=== PATIENT | female | born 1990 | race Hispanic/Latino ===

== ENCOUNTER 2018-01-26 09:54 | Outpatient (CLI) | payer BC | END 2018-01-26 09:55 | disposition home or self-care (01) | LOC: BICULT 09:54 | PROVIDERS: ATTEND Internal Medicine Gastroenterology | DX: K21.9 Gastro-esophageal reflux disease without esophagitis (principal); R10.13 Epigastric pain; R11.2 Nausea with vomiting, unspecified; R94.5 Abnormal results of liver function studies; R19.4 Change in bowel habit; K76.6 Portal hypertension; R16.0 Hepatomegaly, not elsewhere classified | CPT/HCPCS: 76700 ==

== ENCOUNTER 2018-02-10 15:56 | Outpatient (CLI) | payer BC ==
--- NOTE | 2018-02-11 08:32 | MRI ---
MRI ABDOMEN WITH AND WITHOUT IV CONTRAST: INDICATION: Followup liver lesion seen on ultrasound. COMPARISON: Prior complete abdomen ultrasound dated 01/26/18 from [facility]. TECHNIQUE: Multiplanar, multisequence MR images were obtained of the abdomen utilizing IV contrast. 20 cc of Mu ltiHance was administered. FINDINGS: There was a hypoechoic well circumscribed lesion within the anterior aspect of the right hepatic dome measuring 9 x 9 x 1.2 cm on the comparison ultrasound examination. The lesion is very difficult to evaluate on the precontrast MR images as it is isointense to the surrounding liver parenchyma. It is best seen on image 31 of series 5 of the T1 series. Very subtle hyperintensity is seen on image 12 of series 4 within this region of segment 7 of the right hepatic dome. This lesion is seen within a background of fatty liver with area of focal fatty sparing near the gallbladder fossa. There is an a dditional small T2 hyperintense, T1 hypointense lesion seen within segment 6 of the right hepatic lob e measuring 1.5 cm. On the postcontrast series, the incidental lesion within segment 6 of the right hepatic lobe demonstr ates areas of central and peripheral discontinuous nodular enhancement of the progressive central judy ling consistent with a small hemangioma. The lesion, in question, seen on the ultrasound examination, demonstrates some early arterial enhance ment that is fairly homogeneous and diffuse, that persists throughout all phases and may reflect a sm all capillary-type hemangioma. No additional focal hepatic lesion is evident. No enlarged lymph nod es are evident. The liver demonstrates no cirrhotic morphological characteristics. The spleen is no rmal-appearing. The adrenal glands and pancreas appear within normal limits. Visualized aspects of the kidneys appear within normal limits. No definite bone marrow signal abnormality is evident. IMPRESSION: 1. The lesion in question within segment 7 of the right hepatic dome anteriorly is suspicious for a [id number] hemangioma. Would recommend a followup examination in 3-6 months utilizing MRI to document stability. 2. 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 3. Diffuse fatty liver with areas of focal fatty sparing near the gallbladder fossa. POS: [facility]
== END 2018-02-10 15:57 | disposition home or self-care (01) ==
LOC: MRI 15:56
PROVIDERS: ATTEND Internal Medicine Gastroenterology
DX: K76.0 Fatty (change of) liver, not elsewhere classified (principal); R93.3 Abnormal findings on diagnostic imaging of other parts of digestive tract; R11.2 Nausea with vomiting, unspecified; R19.4 Change in bowel habit; R94.5 Abnormal results of liver function studies; K76.89 Other specified diseases of liver
CPT/HCPCS: 74183

== ENCOUNTER 2018-09-13 09:30 | Emergency (ER) | payer BC, OTHER ==
[2018-09-13] MEDS ORDERED: Fluorescein Opthalmic Strip ONE (09:40)
[2018-09-13] MEDS ORDERED: Proparacaine 0.5% Opth 15 ML BOT ONE (09:40)
== END 2018-09-13 10:12 | disposition home or self-care (01) ==
LOC: SCSER 09:30
DX: H18.822 Corneal disorder due to contact lens, left eye (principal); J06.9 Acute upper respiratory infection, unspecified; F41.9 Anxiety disorder, unspecified
CPT/HCPCS: 99283

== ENCOUNTER 2018-12-13 16:22 | Day surgery (SDC) | payer OTHER ==
[2018-12-13 17:11] VITALS: BMI 33.8
[2018-12-13] MEDS ORDERED: Promethazine HCl 25 MG/ML VIAL IM/IV PRN (17:32)
[2018-12-13] MEDS ORDERED: Lactated Ringer's 1,000 ML IV SCH ×2 (17:45)
[2018-12-13 17:57] LABS: #Lymphocytes 0.6 thou/uL (1.20-3.40); #Monocytes 0.1 thou/uL (0.11-0.59); #Neutrophils 7.8 thou/uL (1.40-6.50); %Basophils 0.1 % (0.0-1.0); %Eosinophils 0.4 % (0.0-10.0); %Lymphocytes 6.5 % (21.0-51.0); %Monocytes 1.6 % (0.0-10.0); %Neutrophils 91.4 % (42.0-75.0); Hemoglobin 11.9 g/dL (12.0-16.0); Mean Corpuscular Hemoglobin 28.5 pg (27.0-31.0); Mean Corpuscular Volume 86.3 fL (78.0-98.0); Mean Platelet Volume 10.3 fL (7.4-10.4); Platelet Count 176 thou/uL (130-400); RBC Distribution Width 12.4 % (11.5-14.5); Red Blood Cell (RBC) Count 4.18 mill/uL (4.20-5.40); White Blood Cell (WBC) Count 8.6 thou/uL (4.8-10.8)
[2018-12-13 18:16] LABS: Anion Gap 14 mmol/L (10-20); BUN (Urea Nitrogen) 9 mg/dL (7.0-18.7); Calc. Creatinine Clearance 166 mL/min (70-130); Calcium 8.8 mg/dL (7.8-10.44); Carbon Dioxide 20 mmol/L (22-29); Chloride 106 mmol/L (98-107); Estimated GFR-MDRD Greater than 90; Glucose 90 mg/dL (70-105); Potassium 3.6 mmol/L (3.5-5.1); Sodium 136 mmol/L (136-145)
[2018-12-13 19:26] LABS: Bilirubin Small (Negative); Blood, Urine Negative (Negative); Clarity CLEAR (Clear); Glucose, Urine (Dipstick) Negative (Negative); Leukocyte Negative (Negative); Nitrite Negative (Negative); Protein, Urine (Dipstick) Negative (Neg-Trace); Specific Gravity, Urine 1.028 (1.002-1.036)
[2018-12-13 19:28] LABS: Bacteria/HPF None Seen HPF (None Seen); Hyaline Casts/LPF 4-6 HYALINE CAST LPF (0-3 Hyaline); Pathc Cast-AUWi Flag 0.68 (0-2.49); RBC/HPF 0-3 HPF (0-3); Squamous Epithelial 0-3 HPF (0-3); WBC/HPF 0-3 HPF (0-3)
[2018-12-13 19:32] LABS: Urine Culture Reflex No No
--- NOTE | 2018-12-13 20:47 | ER ---
DATE OF SERVICE: 12/13/2018 PRESENTING COMPLAINT: Nausea and vomiting at 23 weeks' gestation. HISTORY OF PRESENT ILLNESS: The patient is a 28-year-old 3, para 2, at 23 to 24 weeks' gestation, sees Dr. Tima Infante. Antepartum records not available on the unit. She reports one day of nausea and vomiting with diarrhea. She reports household contacts with same, not quite as bad about 5 days ago. She denies bleeding. She denies fever or chills. She does report lower back pain. PIGMENT MIXER HISTORY: x3, no complications. MEDICAL HISTORY: None. PAST SURGICAL HISTORY: None. ALLERGIES: SULFA. MEDICATIONS: vitamins. SOCIAL HISTORY: Denies tobacco, alcohol, or drug use. FAMILY HISTORY: Noncontributory. REVIEW OF SYSTEMS: Noncontributory. PHYSICAL EXAMINATION: GENERAL: female, obviously feeling poorly upon presentation. VITAL SIGNS: Blood pressure 107/66, pulse 111, respirations 18, temperature 98.9, and SaO2 100%. HEENT: Within normal limits. LUNGS: Clear to auscultation bilaterally. HEART: Regular rhythm. ABDOMEN: Soft and nontender without rebound or guarding. Fundal height is 23, FHTs are in the 150s. No CVA tenderness is noted. Vulva was without lesions. Vaginal exam deferred. EXTREMITIES: No clubbing, cyanosis, or edema. Fem cath UA was positive for 40+ ketones, but otherwise unremarkable. CBC and basic metabolic were unremarkable. The patient underwent a course of treatment with LR 1 L bolus and then 250 mL an hour for rehydration. She received 25 of Phenergan IM. After approximately 2.5 hours, the patient felt much better and desired discharge home. She was discharged home on a bland diet, encouraging p.o. intake with Gatorade or other electrolyte bearing liquids, and to keep scheduled followup with Dr. Infante with ER precautions for return. Job ID: [id number]
== END 2018-12-13 21:04 | disposition home or self-care (01) ==
LOC: L&D/OP 16:22
PROVIDERS: ATTEND Obstetrics & Gynecology
DX: O99.89 Other specified diseases and conditions complicating pregnancy, childbirth and the puerperium (principal); R19.7 Diarrhea, unspecified; R11.2 Nausea with vomiting, unspecified; Z88.2 Allergy status to sulfonamides; Z3A.23 23 weeks gestation of pregnancy
CPT/HCPCS: 36415; 51701; 80048; 81001; 85025; 96360; 96361; 96372; 99282; J2550

== ENCOUNTER 2019-03-07 19:07 | Inpatient (IN) | payer OTHER ==
[2019-03-07 19:56] VITALS: BMI 33.6
[2019-03-07 20:09] LABS: Amnisure Test No Membranes Rupture (No Rupture)
[2019-03-07 20:10] LABS: Amnisure Internal Control QC ACCEPTABLE (ACCEPTABLE)
[2019-03-07] MEDS ORDERED: hydrALAZINE 20 MG/ML VIAL SLOW IVP PRN ×2 (20:16→23:04)
--- NOTE | 2019-03-07 21:20 | ULT ---
US OB Ltd HISTORY: Evaluation of position and amniotic fluid index. COMPARISON: None. FINDINGS: Limited examination was performed as anatomy was difficult to assess at this stage of gestation. There is a single viable intrauterine which is in a vertex presentation. The placenta is left-sided and fundal in location. The amniotic fluid is decreased consistent with a hist ory of possible premature rupture of membrane. The amniotic fluid index is 6.9. Visually the fluid appears very decreased. measurements are as follows: BPD: 8.5 cm, 34 weeks 3 days. Head circumference: 31.4 cm, 35 weeks 1 day. Abdominal circumference: 31.4 cm, 35 weeks 2 days. Femur length: 6.8 cm, 34 weeks 6 days. The heart rate is 126 bpm. IMPRESSION: 1. Single viable intrauterine in a vertex presentation. Overall measurements corresponding to 35 weeks 0 days with an estimated date of delivery of 04/11/2019. 2. Estimated weight of 2600 +/- 380 g. 3. Oligohydramnios.
[2019-03-07 21:33] LABS: Amnisure Internal Control QC ACCEPTABLE (ACCEPTABLE); Amnisure Test RUPTURE DETECTED (No Rupture)
--- NOTE | 2019-03-07 22:01 | PDOC.EVN ---
Event Note - Event Note Event Note: pt with eval for rom at 35 wk. initial amnisure neg. sono with vahid of 6 cm. SSE with some fluid, amnisure positive. care and report given to dr matias.
[2019-03-07] MEDS ORDERED: NS / Oxytocin 40 units/1000ml 1,000 ML IV PRN (23:04)
[2019-03-07] MEDS ORDERED: NS w/ Oxytocin 10 units 500 ML IV SCH (23:04)
[2019-03-07] MEDS ORDERED: Ondansetron PF 4 MG/2 ML Vial IVP PRN (23:04)
[2019-03-07] MEDS ORDERED: HYDROcodone/Acetaminophen 5/325 mg Tablet PO PRN ×2 (23:04)
[2019-03-07] MEDS ORDERED: Promethazine HCl 25 MG/ML VIAL IM PRN (23:04)
[2019-03-07] MEDS ORDERED: Lactated Ringer's 1,000 ML IV SCH (23:04)
[2019-03-07] MEDS ORDERED: Butorphanol Tartrate 1 MG/ML VIAL SLOW IVP PRN (23:04)
[2019-03-07] MEDS ORDERED: Ibuprofen 800 MG TAB PO PRN (23:04)
[2019-03-07] MEDS ORDERED: Lidocaine 1% (PF) 30 ML VIAL SC PRN (23:04)
[2019-03-07] MEDS: Lactated Ringer's 1,000 ML IV SCH (23:05)
[2019-03-07 23:26] LABS: Hemoglobin 11.7 g/dL (12.0-16.0); Mean Corpuscular HGB CONC 34.7 g/dL (32.0-36.0); Mean Corpuscular Hemoglobin 27.9 pg (27.0-31.0); Mean Corpuscular Volume 80.4 fL (78.0-98.0); Platelet Count 175 thou/uL (130-400); White Blood Cell (WBC) Count 6.8 thou/uL (4.8-10.8)
[2019-03-07] MEDS ORDERED: Calcium Carbonate 500 MG ChewTAB PO PRN (23:47)
[2019-03-08 00:04] LABS: HBSAg Index 0.34 S/CO (0-0.99); Hep B Surf Ag Non-Reactive S/CO (NonReactive)
[2019-03-08 00:05] LABS: Syphilis Antibody Nonreactive (Nonreactive); Syphilis Antibody Index 0.05 S/CO (<1.00 Non-Reactive)
[2019-03-08] MEDS: Lactated Ringer's 1,000 ML IV SCH ×2 (03:13→11:36)
[2019-03-08] MEDS: Betamet Acet/Betamet Na Ph 30 MG/5 ML VIAL ONE (08:29)
[2019-03-08] MEDS ORDERED: Betamet Acet/Betamet Na Ph 30 MG/5 ML VIAL IM SCH (09:00)
[2019-03-08] MEDS ORDERED: Methylergonovine 0.2 MG/ML VIAL ONE (21:59)
[2019-03-08] MEDS ORDERED: Lidocaine 1% (PF) 30 ML VIAL ONE (21:59)
[2019-03-08] MEDS ORDERED: NS / Oxytocin 40 units/1000ml 1,000 ML ONE (21:59)
[2019-03-09] MEDS: Betamet Acet/Betamet Na Ph 30 MG/5 ML VIAL ONE (01:43)
[2019-03-09] MEDS: Lactated Ringer's 1,000 ML IV SCH (01:45)
[2019-03-09] MEDS ORDERED: Benzocaine-Menthol 82.5 ML CAN TOP PRN (02:30)
[2019-03-09] MEDS ORDERED: Acetaminophen 500 MG TAB PO PRN (02:30)
[2019-03-09] MEDS ORDERED: Lanolin Ointment 7 GM TUBE TOP PRN (02:31)
[2019-03-09] MEDS ORDERED: hydrALAZINE 20 MG/ML VIAL SLOW IVP PRN (02:31)
[2019-03-09 05:57] LABS: Hemoglobin 10.1 g/dL (12.0-16.0); Mean Corpuscular HGB CONC 34.4 g/dL (32.0-36.0); Mean Corpuscular Hemoglobin 27.8 pg (27.0-31.0); Mean Corpuscular Volume 80.8 fL (78.0-98.0); Mean Platelet Volume 11.2 fL (7.4-10.4); Platelet Count 156 thou/uL (130-400); RBC Distribution Width 13.1 % (11.5-14.5); Red Blood Cell (RBC) Count 3.65 mill/uL (4.20-5.40); White Blood Cell (WBC) Count 10.7 thou/uL (4.8-10.8)
[2019-03-09] MEDS: Docusate Calcium (SURFAK) 240 MG CAP PO SCH ×2 (08:27→20:46)
[2019-03-09] MEDS: Ibuprofen 800 MG TAB PO PRN ×2 (09:33→20:46)
[2019-03-09] MEDS: Famotidine 20 MG TAB PO SCH (12:35)
--- NOTE | 2019-03-09 13:34 | PDOC.PP ---
Post Progress Note Post Day #: 1 PO intake tolerated: yes Flatus: yes Ambulation: yes Vital Signs (12 hours) Temp Pulse Resp BP Pulse Ox 03/09/19 11:49 98.2 F 81 20 117/72 03/09/19 08:14 97.8 F 84 20 110/66 97 03/09/19 03:24 98.4 F 85 12 122/70 97 03/09/19 02:33 98.6 F 93 14 121/73 98 Weight Weight 184 lb - Physical Examination Respiratory: clear to auscultation bilaterally, non-labored breathing Abdominal: + bowel sounds, lochia, no distention Extremities: negative homans (B) Neurological: no gross focal deficits Psychiatric: A&Ox3, normal affect Result Diagrams: 03/09/19 05:28 Additional Labs: Post Labs Blood Type A POSITIVE 03/08/19 01:00 Hep Bs Antigen Non-Reactive S/CO (NonReactive) 03/07/19 23:07
[2019-03-10 08:14] VITALS: BP 109/62; TEMP 98.3
[2019-03-10] MEDS: Docusate Calcium (SURFAK) 240 MG CAP PO SCH (11:12)
[2019-03-10] MEDS: Famotidine 20 MG TAB PO SCH (11:12)
[2019-03-10] MEDS: Ibuprofen 800 MG TAB PO PRN (12:40)
== END 2019-03-10 13:12 | disposition home or self-care (01) | DRG 805 ==
LOC: L&D/OP 19:07 → L&D 22:30 → 3SE 03-09 01:04
PROVIDERS: ADMIT Obstetrics & Gynecology; ATTEND Obstetrics & Gynecology
PROC: 10E0XZZ Delivery of Products of Conception, External Approach (ICD-10-PCS; principal; 2019-03-07)
DX: O42.913 Preterm premature rupture of membranes, unspecified as to length of time between rupture and onset of labor, third trimester (principal); O60.14X0 Preterm labor third trimester with preterm delivery third trimester, not applicable or unspecified; Z37.0 Single live birth; Z3A.35 35 weeks gestation of pregnancy
CPT/HCPCS: 36415; 76815; 84112; 85027; 86780; 86850; 86900; 86901; 87340; 99285; J0702; J2001; J2210; J2590

== ENCOUNTER 2019-12-15 20:42 | Emergency (ER) | payer OTHER, SELFPAY ==
[2019-12-15 21:33] LABS: #Basophils 0.1 thou/uL (0.0-0.2); #Eosinphils 0.3 thou/uL (0.0-0.7); #Lymphocytes 2.6 thou/uL (1.20-3.40); #Monocytes 0.5 thou/uL (0.11-0.59); #Neutrophils 3.8 thou/uL (1.40-6.50); %Basophils 0.9 % (0.0-1.0); %Eosinophils 3.9 % (0.0-10.0); %Lymphocytes 35.9 % (21.0-51.0); %Monocytes 6.4 % (0.0-10.0); %Neutrophils 52.9 % (42.0-75.0); Hemoglobin 13.4 g/dL (12.0-16.0); Mean Corpuscular HGB CONC 32.1 g/dL (32.0-36.0); Mean Corpuscular Hemoglobin 27.4 pg (27.0-31.0); Mean Corpuscular Volume 85.1 fL (78.0-98.0); Mean Platelet Volume 10.9 fL (7.4-10.4); Platelet Count 242 thou/uL (130-400); RBC Distribution Width 13.9 % (11.5-14.5); Red Blood Cell (RBC) Count 4.89 mill/uL (4.20-5.40); White Blood Cell (WBC) Count 7.1 thou/uL (4.8-10.8)
[2019-12-15 21:45] LABS: BHCG - Serum Negative (NEGATIVE); Pregs Control Background? CLEAR/WHITE (CLR/WHITE); Pregs Control Bar Appear? YES (CONTROL BAR)
[2019-12-15 21:51] LABS: ALT (SGPT) 132 U/L (8-55); AST (SGOT) 82 U/L (5-34); Albumin 4.7 g/dL (3.5-5.0); Alkaline Phosphatase 91 U/L (40-110); Anion Gap 15 mmol/L (10-20); BUN (Urea Nitrogen) 11 mg/dL (7.0-18.7); Bilirubin, Total 0.6 mg/dL (0.2-1.2); Calc. Creatinine Clearance 0 mL/min (70-130); Calcium 9.6 mg/dL (7.8-10.44); Carbon Dioxide 23 mmol/L (22-29); Chloride 108 mmol/L (98-107); Estimated GFR-MDRD 89; Globulin 3.4 g/dL (2.4-3.5); Glucose 93 mg/dL (70-105); Potassium 3.8 mmol/L (3.5-5.1); Protein, Total 8.1 g/dL (6.0-8.3); Sodium 142 mmol/L (136-145)
== END 2019-12-15 23:48 | disposition home or self-care (01) ==
LOC: ERS 20:42
DX: R55 Syncope and collapse (principal); F41.9 Anxiety disorder, unspecified
CPT/HCPCS: 36415; 80053; 84703; 85025; 86900; 86901; 93005